=== PATIENT | female | born 2000 ===

== ENCOUNTER 2020-07-24 22:29 | Emergency (ER) | payer OTHER ==
[~2020-07-24] VITALS: Ht 170.2 cm; Wt 71.2 kg
--- NOTE | 2020-07-24 22:40 | NUR ---
Dr. Jeffrey at bedside for MSE.
[2020-07-24] MEDS ORDERED: diphenhydrAMINE 50 MG CAPSULE PO ONE (22:45)
[2020-07-24] MEDS ORDERED: ACETAMINOPHEN ES 500 MG TABLET PO ONE (22:45)
[2020-07-24] MEDS ORDERED: ACETAMINOPHEN ES 500 MG TABLET ONE (22:48)
[2020-07-24] MEDS ORDERED: diphenhydrAMINE 50 MG CAPSULE ONE (22:49)
--- NOTE | 2020-07-24 22:50 | NUR ---
Pt is refusing medications and treatment, being very noncompliant and admits to not want help. RN has tried to reassure and redirect patient but to no avail. Vital signs are stable, and no indications of being in active distress. MD notified and patient will be discharged. [facility] contacted for transport. Em provided BLS transport to [facility] ETA [id number].
--- NOTE | 2020-07-25 | NUR ---
[facility] ambulance is here for patient. Patient discharged to home in stable condition. Written and verbal after care instructions given to EMT, patient unable to sign. DC instructions provided so that nurses in [facility] can also be updated. Verbalized understanding of instructions. Stressed follow up or return to ER for worsening s/s. Pt refused to sign homeless waiver form, RN cosigned. Pt will have senior care in [facility] in the timebeing. Left in stable condition, able to ambulate with steady gait from bed to gurney.
[2020-07-25 00:19] VITALS: BP 100/30
== END 2020-07-25 | disposition home or self-care (01) ==
LOC: ER 22:31
DX: O99.322 Drug use complicating pregnancy, second trimester (principal); F12.180 Cannabis abuse with cannabis-induced anxiety disorder; O98.512 Other viral diseases complicating pregnancy, second trimester; U07.1 COVID-19; Z3A.26 26 weeks gestation of pregnancy; Z59.0 Homelessness; F31.9 Bipolar disorder, unspecified; F20.9 Schizophrenia, unspecified
CPT/HCPCS: A4663; A9150; Q0163